=== PATIENT | female | born 1975 | race Caucasian/White ===

== ENCOUNTER → 2016-12-21 | Outpatient (CLI) | payer BC ==
[~2016-12-21] MED LIST: FERR50TA3 PO; IBUP-1459 PO
--- NOTE | 2016-12-21 11:17 | DIAGNOSTIC IMAGING REPORT ---
CHEST 2 VIEWS ROUTINE CLINICAL HISTORY: BRONCHITIS dyspnea COMPARISON STUDY: No previous studies for comparison. FINDINGS: The bones soft tissues and hemidiaphragms are normal. The cardiomediastinal silhouette is normal. The lungs are clear. The pulmonary vasculature is normal. IMPRESSION: Negative chest. Electronically signed by: Alcon Montalvo M.D. 12/21/2016 11:16 AM Dictated Date/Time: 12/21/2016 11:16 AM
== END | disposition home or self-care (01) ==
LOC: C.RAD 10:51
PROVIDERS: ATTEND Nurse Practitioner Family
DX: J20.9 Acute bronchitis, unspecified (principal)

== ENCOUNTER → 2017-02-13 | Outpatient (CLI) | payer BC | END | disposition home or self-care (01) | LOC: C.PATHSPEC 17:42 | PROVIDERS: ATTEND Plastic Surgery | DX: L72.0 Epidermal cyst (principal); L72.11 Pilar cyst ==

== ENCOUNTER → 2017-02-26 | Outpatient (CLI) | payer BC ==
[2017-02-26 17:01] LABS: HEMATOCRIT 38.5 % (37-47); MEAN CELL VOLUME 87.1 fL (80-100); MEAN CORPUSCULAR HEMOGLOBIN 28.3 pg (25-34); MEAN CORPUSCULAR HGB CONC 32.5 g/dl (32-36); PLATELET COUNT 225 K/uL (130-400); RED BLOOD COUNT 4.42 M/uL (4.2-5.4); WHITE BLOOD COUNT 6.82 K/uL (4.8-10.8)
== END | disposition home or self-care (01) ==
LOC: C.LABBC 13:10
PROVIDERS: ATTEND Nurse Practitioner Family
DX: Z86.2 Personal history of diseases of the blood and blood-forming organs and certain disorders involving the immune mechanism (principal)

== ENCOUNTER → 2018-01-25 | Outpatient (CLI) | payer OTHER ==
--- NOTE | 2018-01-28 08:09 | MAMMOGRAPHY REPORT ---
UNILATERAL LEFT DIGITAL DIAGNOSTIC MAMMOGRAM TOMOSYNTHESIS WITH CAD AND TARGETED LEFT ULTRASOUND: 01/07 CLINICAL HISTORY: Six-month follow-up of left breast mass. The patient reports she always has cysts bilaterally which fluctuate in size, but no new or concerning palpable lumps. TECHNIQUE: Breast tomosynthesis in addition to standard 2D mammography was performed. Current study was also evaluated with a Computer Aided Detection (CAD) system. Left CC and MLO 2D and tomosynthesi s images were obtained. COMPARISON: Comparison is made to exams dated: 08/03/2017 ultrasound, 08/03/2017 mammogram, 03/09/2016 ultrasound, 03/09/2016 mammogram, 01/07/2016 mammogram, and 12/03/2015 mammogram - [facility]. BREAST COMPOSITION: The tissue of the left breast is heterogeneously dense, which may obscure small masses. FINDINGS: The previously seen nodular asymmetry within the left lateral breast on the cc view is stab le to less prominent on the current exam (slice 9/59 on the cc tomosynthesis images). The remainder of the left breast is stable, without suspicious masses, calcifications, or areas of architectural di stortion noted. Biopsy marker clips are again noted within the left medial breast. Scattered benign -appearing calcifications are stable. Targeted ultrasound was performed of the left 4:00 breast in the region of the mammographic mass. In the left breast at 4:00, 4 cm from the nipple, again noted is a circumscribed oval mass which is par tially anechoic and cystic but some echogenic material is seen within it. The mass is stable in size and appearance compared to the July 2017 exam, currently measuring 9 x 6 x 7 mm, previously measu ring 8 x 5 x 9 mm. The mass is probably benign and likely represents a complicated cyst. The option s of another short interval follow-up versus ultrasound-guided biopsy were discussed with this patien t, and at this time we will opt for another follow-up. IMPRESSION: ACR-BI-RADS CATEGORY 3: PROBABLY BENIGN, TARGETED ULTRASOUND ACR-BI-RADS CATEGORY 3: PRO BABLY BENIGN Stable size and appearance of a circumscribed 9 mm mass in the left 4:00 breast, which is probably be nign and may represent a complicated cyst. Recommend bilateral diagnostic tomosynthesis mammograms a nd targeted ultrasound in 6 months to reevaluate the left breast mass and for routine mammography of the right breast. The patient has been verbally notified of the results. Approximately 10% of breast cancers are not detected with mammography. A negative mammographic report should not delay biopsy if a clinically suggestive mass is present. Barbara Longoria M.D. ah/:01/25/2018 14:51:28 [employer]: Gabi STEELE)(Samantha), [facility] letter sent: Follow Up Recommended 3 BI-RADS Code: ACR-BI-RADS Category 3: Probably Benign Ultrasound BI-RADS: ACR-BI-RADS Category 3: Pr obably Benign
== END | disposition home or self-care (01) ==
LOC: C.MAMM 13:52
PROVIDERS: ATTEND Obstetrics & Gynecology
DX: N63.23 Unspecified lump in the left breast, lower outer quadrant (principal)